=== PATIENT | male | born 1990 | race Caucasian/White ===

== ENCOUNTER → 2023-01-26 10:33 | Outpatient (BNVA) | payer BC, SELFPAY | PROVIDERS: Family Provider Nurse Practitioner Family; PCP Nurse Practitioner Family; Visit Provider Nurse Practitioner Family | DX: R05.9 Cough, unspecified (principal); U07.1 COVID-19 | CPT/HCPCS: 87426 ==

== ENCOUNTER 2023-06-27 12:49 | Emergency (ER) | payer OTHER, SELFPAY ==
[2023-06-27 12:54] VITALS: BP 150/84; PULSE 86; RESP 18; TEMP 37.2; O2SAT 97
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
--- NOTE | 2023-06-27 13:41 | XR_ITS ---
WS: [id number] Exam: XR shoulder RT min 2V* [id number] Date/Time of Exam: 06/27/2023 2:11 PM Reason For Exam: injury Exam: XR shoulder RT min 2V* [id number] Date/Time of Exam: 06/27/2023 2:11 PM Reason For Exam: injury No acute fracture or dislocation. Articular relationships are intact. Normal soft tissues. IMPRESSION: 1. Negative RIGHT shoulder.
--- NOTE | 2023-06-27 13:41 | XR_ITS ---
WS: [id number] Exam: XR chest 1V portable [id number] Date/Time of Exam: 06/27/2023 2:12 PM Reason For Exam: chest pain No priors. Findings: The lungs are clear and fully expanded. Costophrenic angles are sharp. No infiltrates. Bronchovascula r relief appears normal. Cardiac silhouette is unremarkable. Bony elements are intact. IMPRESSION: Unremarkable chest radiograph.
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
[2023-06-27] MEDS: acetaminophen 500 mg Tablet 1000 MG PO (14:05)
[2023-06-27 15:09] VITALS: BP 150/84; PULSE 86; RESP 18; O2SAT 97
== END 2023-06-27 15:11 | disposition home or self-care (01) ==
PROVIDERS: Emergency Provider Physician Assistant; PCP Nurse Practitioner Family
DX: S00.03XA Contusion of scalp, initial encounter (principal); S49.91XA Unspecified injury of right shoulder and upper arm, initial encounter; S40.211A Abrasion of right shoulder, initial encounter; Z87.891 Personal history of nicotine dependence; V85.5XXA Driver of special construction vehicle injured in nontraffic accident, initial encounter; Y99.0 Civilian activity done for income or pay
CPT/HCPCS: 70450; 71045; 72125; 73030; 99284